=== PATIENT | male | born 1955 | race Caucasian/White ===

== ENCOUNTER 2022-01-16 07:52 | Day surgery (SDC) | payer OTHER ==
[~2022-01-16] VITALS: Ht 165.1 cm; Wt 84.4 kg
[2022-01-16] MEDS ORDERED: MIDAZOLAM 2 MG/2 ML VIAL ONE ×2 (10:17)
[2022-01-16] MEDS ORDERED: fentaNYL citrate 0.05 MG/ML VIAL ONE (10:17)
[2022-01-16] MEDS ORDERED: LIDOCAINE 2% 100 MG/5 ML UJET TP ONE (10:17)
[2022-01-16] MEDS ORDERED: fentaNYL citrate 0.05 MG/ML VIAL IVP ONE ×2 (10:50→11:10)
[2022-01-16] MEDS ORDERED: MIDAZOLAM 2 MG/2 ML VIAL IVP ONE ×2 (10:50→11:10)
== END 2022-01-16 11:40 | disposition home or self-care (01) ==
LOC: MDS 07:52 → MMU 07:53 → MDS 11:40
PROVIDERS: ATTEND Internal Medicine Gastroenterology
DX: Z12.11 Encounter for screening for malignant neoplasm of colon (principal); K57.30 Diverticulosis of large intestine without perforation or abscess without bleeding; K22.10 Ulcer of esophagus without bleeding; K21.00 Gastro-esophageal reflux disease with esophagitis, without bleeding; Z88.8 Allergy status to other drugs, medicaments and biological substances; Z79.899 Other long term (current) drug therapy; Z20.822 Contact with and (suspected) exposure to COVID-19
CPT/HCPCS: 43235; 45378; 87426; J2250; J3010

== ENCOUNTER 2023-10-22 06:57 | Day surgery (SDC) | payer OTHER ==
[~2023-10-22] VITALS: Ht 167.6 cm; Wt 83.0 kg
[2023-10-22] MEDS: MIDAZOLAM 2 MG/2 ML VIAL IVP ONE (07:40)
[2023-10-22] MEDS ORDERED: fentaNYL citrate 0.05 MG/ML VIAL ONE (07:42)
[2023-10-22] MEDS ORDERED: MIDAZOLAM 2 MG/2 ML VIAL ONE (07:42)
== END 2023-10-22 09:00 | disposition home or self-care (01) ==
LOC: MDS 06:57 → MMU 06:58 → MDS 09:00
PROVIDERS: ATTEND Internal Medicine Gastroenterology
DX: K21.00 Gastro-esophageal reflux disease with esophagitis, without bleeding (principal); R10.13 Epigastric pain; K22.10 Ulcer of esophagus without bleeding; K44.9 Diaphragmatic hernia without obstruction or gangrene; I10 Essential (primary) hypertension; E03.9 Hypothyroidism, unspecified; E78.5 Hyperlipidemia, unspecified; Z79.899 Other long term (current) drug therapy; Z98.890 Other specified postprocedural states
CPT/HCPCS: 43235; J2250; J3010